=== PATIENT | male | born 1985 | race Caucasian/White ===

== ENCOUNTER 2016-11-19 17:23 | Emergency (ER) | payer BC ==
[2016-11-19] MEDS ORDERED: Ketorolac 30 MG/ML SDV IVPUSH ONE (17:40)
--- NOTE | 2016-11-19 17:47 | EDM.PDOC ---
ED HPI GENERAL MEDICAL PROBLEM - General Chief Complaint: Chest Pain Stated Complaint: PT HAS CHEST PAINS Time Seen by Provider: 11/19/16 17:35 Source of Information: Reports: Patient History Limitations: Reports: No Limitations - History of Present Illness INITIAL COMMENTS - FREE TEXT/NARRATIVE: HISTORY AND PHYSICAL: History of present illness: Patient is a 31-year-old male who presents to the emergency room today with complaints of left/midsternal chest pain. States that he had a similar episode approximately 3 weeks ago which led him to the walk-in clinic. At that time a physician nurse practitioner physicians assistant had done an EKG and was concerned he had some ST elevation and was transferred to the emergency room via private vehicle. When he arrived to the emergency room in [place] they repeated the EKG which was normal at that time but did note to have some elevated blood pressure. He stated the blood pressure was 159/104 and was instructed to follow-up with his primary care provider for a pressure management. He was prescribed Prilosec at that time for possible ulcer. Patient did not follow-up since that time. Since that time the chest pain has been intermittent, usually precipitated with lifting anything heavy. Patient states he was setting headstones this time when the pain started. Denies any trauma or injury to the chest. Denies any shortness of breath, nausea , diaphoresis, abdominal pain, fever or chills. Patient started smoking approximately 1-1/2 years ago, smokes a pack per day. Father has had a heart attack in the past, lung cancer. Denies any current medical problems. Review of systems: As per history of present illness and below otherwise all systems reviewed and negative. Past medical history: As per history of present illness and as reviewed below otherwise noncontributory. Surgical history: As per history of present illness and as reviewed below otherwise noncontributory. Social history: No reported history of drug or alcohol abuse. Family history: As per history of present illness and as reviewed below otherwise noncontributory. Physical exam: Gen.: Nontoxic appearing 31-year-old male. Well-developed and well-nourished. Able to speak in full sentences without shortness of breath. Alert and oriented. HEENT: Atraumatic, normocephalic, pupils reactive, negative for conjunctival pallor or scleral icterus, mucous membranes moist, throat clear, neck supple, nontender, trachea midline. Lungs: Clear to auscultation, breath sounds equal bilaterally, chest nontender. Heart: S1S2, regular, negative for clicks, rubs, or JVD. Abdomen: Soft, nondistended, nontender. Negative for masses or hepatosplenomegaly. Negative for costovertebral tenderness. Pelvis: Stable nontender. Genitourinary: Deferred. Rectal: Deferred. Extremities: Atraumatic, negative for cords or calf pain. Neurovascular unremarkable. Neuro: Awake, alert, oriented. Cranial nerves II through XII unremarkable. Cerebellum unremarkable. Motor and sensory unremarkable throughout. Exam nonfocal. I reviewed all the testing results with the patient. Did offer the patient admission for observation to rule out ME. Patient reports that he is unable to stay due to his occupation obligations. Patient does state that he will follow- up with the invisible braces orthodontist in [place] where he is from. Patient is aware of the possible risks of going home AMA. Patient to start a 81 mg aspirin daily. Patient is agreeable to plan of care and denies any further questions at this time. Diagnostics: CBC, CMP, EKG, chest Therapeutics: Toradol Impression: Chest pain, non-specific Plan: 1. Please start a 81 mg aspirin once daily. 2. Follow-up with the invisible braces orthodontist as we discussed. I would like you to have further evaluation of your ongoing chest pain. He may do this here with Dr. Estrada (Dr. Epperson) or back home in [place]. 3. Have given you a prescription for Flexeril which is a muscle relaxer. You may take this at the onset of ear pain as some of your symptoms sound similar to a muscle spasm/strain and muscle. 4. Return to the ED as needed as discussed Definitive disposition and diagnosis as appropriate pending reevaluation and review of above. Duration: Week(s): (3) Left Chest Pain Score (Numeric/FACES): 3 - Related Data Allergies Allergy/AdvReac Type Severity Reaction Status Date / Time Penicillins Allergy Hives Verified 11/19/16 17:27 Home Meds: Home Meds . [No Known Home Meds] 11/19/16 [History] Past Medical History HEENT History: Reports: None Cardiovascular History: Reports: None Respiratory History: Reports: None Gastrointestinal History: Reports: None Genitourinary History: Reports: None Musculoskeletal History: Reports: None Neurological History: Reports: None Psychiatric History: Reports: None Endocrine/Metabolic History: Reports: None Hematologic History: Reports: None Immunologic History: Reports: None Oncologic (Cancer) History: Reports: None Dermatologic History: Reports: None - Past Surgical History Head Surgeries/Procedures: Reports: None HEENT Surgical History: Reports: None Cardiovascular Surgical History: Reports: None Respiratory Surgical History: Reports: None GI Surgical History: Reports: None Male Surgical History: Reports: None Endocrine Surgical History: Reports: None Neurological Surgical History: Reports: None Musculoskeletal Surgical History: Reports: None Oncologic Surgical History: Reports: None Dermatological Surgical History: Reports: None Social & Family History - Family History Cardiac: Reports: ME Other Cardiac Family History: father - Tobacco Use Smoking Status *Q: Current Every Day Smoker Years of Tobacco use: 6 Packs/Tins Daily: 0.5 - Caffeine Use Caffeine Use: Reports: Soda - Recreational Drug Use Recreational Drug Use: No ED ROS GENERAL - Review of Systems Review Of Systems: ROS reveals no pertinent complaints other than HPI. ED EXAM, GENERAL - Physical Exam Exam: See Below (See dictation) Course - Vital Signs Last Recorded V/S: Last Vital Signs Temp 36.2 C 11/19/16 17:27 Pulse 64 11/19/16 17:27 Resp 18 11/19/16 17:27 BP 152/91 H 11/19/16 17:27 Pulse Ox 97 11/19/16 17:27 - Orders/Labs/Meds Orders: Active Orders 24 hr Category Date Time Status EKG Documentation Completion [RC] STAT Care 11/19/16 17:40 Active Chest 1V Frontal [CR] Stat Exams 11/19/16 17:40 Taken Labs: Laboratory Tests 11/19/16 11/19/16 11/19/16 Range/Units 17:52 17:52 17:52 WBC 7.71 (4.0-11.0) K/uL RBC 4.81 (4.50-5.90) M/uL Hgb 14.6 (13.0-17.0) g/dL Hct 41.6 (38.0-50.0) % MCV 86.5 (80.0-98.0) fL MCH 30.4 (27.0-32.0) pg MCHC 35.1 (31.0-37.0) g/dL RDW Std Deviation 41.3 (28.0-62.0) fl RDW Coeff of Grace 13 (11.0-15.0) % Plt Count 309 (150-400) K/uL MPV 9.70 (7.40-12.00) fL Neut % (Auto) 61.7 (48.0-80.0) % Lymph % (Auto) 28.4 (16.0-40.0) % [place] % (Auto) 6.7 (0.0-15.0) % Eos % (Auto) 2.9 (0.0-7.0) % Baso % (Auto) 0.3 (0.0-1.5) % Neut # (Auto) 4.8 (1.4-5.7) K/uL Lymph # (Auto) 2.2 (0.6-2.4) K/uL [place] # (Auto) 0.5 (0.0-0.8) K/uL Eos # (Auto) 0.2 (0.0-0.7) K/uL Baso # (Auto) 0.0 (0.0-0.1) K/uL Nucleated RBC % 0.0 /100WBC Nucleated RBCs # 0 K/uL Sodium 138 (136-146) mmol/L Potassium 3.8 (3.5-5.1) mmol/L Chloride 106 (98-110) mmol/L Carbon Dioxide 23 (21-31) mmol/L BUN 21 (6.0-23.0) mg/dL Creatinine 0.9 (0.6-1.5) mg/dL Est Cr Clr Drug Dosing TNP Estimated GFR (MDRD) > 60.0 ml/min Glucose 114 H (60-110) mg/dL Calcium 9.0 (8.8-10.8) mg/dL Total Bilirubin 0.4 (0.1-1.5) mg/dL AST 26 (5-40) IU/L ALT 27 (8-54) IU/L Alkaline Phosphatase 91 (40-150) Troponin I < 0.10 (0.0-0.29) NG/ML Total Protein 7.1 (6.0-8.0) g/dL Albumin 4.2 (3.5-5.0) g/dL Globulin 2.9 (2.0-3.5) g/dL Albumin/Globulin Ratio 1.4 (1.3-2.8) Meds: Medications Discontinued Medications Generic Name Dose Route Start Last Admin Trade Name Abbe PRN Reason Stop Dose Admin Ketorolac Tromethamine 30 mg 11/19/16 17:40 11/19/16 18:02 Toradol IVPUSH 11/19/16 17:41 30 mg ONETIME ONE Administration Departure - Departure Time of Disposition: 19:24 Disposition: Home, Self-Care 01 Clinical Impression: Chest pain Qualifiers: Chest pain type: unspecified Qualified Code(s): R07.9 - Chest pain, unspecified Forms: ED Department Discharge Additional Instructions: My general discharge The following information is given to patients seen in the emergency department who are being discharged to home. This information is to outline your options for follow-up care. We provide all patients seen in our emergency department with a follow-up referral. The need for follow-up, as well as the timing and circumstances, are variable depending upon the specifics of your emergency department visit. If you don't have a primary care physician on staff, we will provide you with a referral. We always advise you to contact your personal physician following an emergency department visit to inform them of the circumstance of the visit and for follow-up with them and/or the need for any referrals to a consulting specialist. The emergency department will also refer you to a specialist when appropriate. This referral assures that you have the opportunity for follow-up care with a specialist. All of these measure are taken in an effort to provide you with optimal care, which includes your follow-up. Under all circumstances we always encourage you to contact your private physician who remains a resource for coordinating your care. When calling for follow-up care, please make the office aware that this follow-up is from your recent emergency room visit. If for any reason you are refused follow-up, please contact the [facility] Emergency Department at and asked to speak to the emergency department charge nurse. [facility] Primary Care - Dr. Bolton (Barrel Builder) [address] [place] [id number] 1. Please start a 81 mg aspirin once daily. 2. Follow-up with the invisible braces orthodontist as we discussed. I would like you to have further evaluation of your ongoing chest pain. He may do this here with Dr. Estrada (Dr. Armijo) or back home in [place]. 3. Have given you a prescription for Flexeril which is a muscle relaxer. You may take this at the onset of your pain as some of your symptoms sound similar to a muscle spasm/strain and muscle. 4. Return to the ED as needed as discussed - My Orders Last 24 Hours: My Active Orders 11/19/16 17:40 EKG Documentation Completion [RC] STAT Chest 1V Frontal [CR] Stat - Assessment/Plan Last 24 Hours: My Active Orders 11/19/16 17:40 EKG Documentation Completion [RC] STAT Chest 1V Frontal [CR] Stat
[2016-11-19 18:18] LABS: CHLORIDE,CL 106 mmol/L (98-110); SODIUM,NA 138 mmol/L (136-146)
--- NOTE | 2016-11-20 09:46 | CR ---
EXAM DATE: 11/19/16 PATIENT'S AGE: 31 Patient: CHRISTOPHER DICKEY Facility: [place], [place] Site . Site : 1985 Study: XRay Chest [id number] 6:24:48 PM Ordering Physician: Doctor Christianson Final Report: INDICATION: chest pain TECHNIQUE: Chest 1 view COMPARISON: None FINDINGS: Cardiovascular and mediastinum: Heart size and vasculature are normal in caliber and appearance. Mediastinum is within normal limits. Lungs and pleural space: No focal consolidation. No sign of pleural effusion. No pneumothorax. Bones and soft tissues: No significant findings. IMPRESSION: No acute cardiopulmonary disease. Dictated by Benjamín Ballard MD @ 11/19/2016 6:31:47 PM Dictated by: Benjamín Ballard MD @ 11/19/2016 18:32:08 (Electronic Signature) Report Signed by Proxy. [facility]
== END 2016-11-19 19:54 | disposition home or self-care (01) ==
LOC: MW.ED 17:23
DX: R07.89 Other chest pain (principal); F17.210 Nicotine dependence, cigarettes, uncomplicated; Z88.0 Allergy status to penicillin
CPT/HCPCS: 36415; 71010; 80053; 84484; 85025; 96374; 99285; J1885; 99283